=== PATIENT | female | born 1955 | race Caucasian/White ===

== ENCOUNTER 2018-06-27 06:30 | Inpatient (IN) ==
[2018-06-27] MEDS ORDERED: Chlorhexidine Gluconate 2% 1 Pack (2 Cloths) TOPICAL ONE (06:57)
[2018-06-27] MEDS ORDERED: Metoprolol Tartrate 25 MG Tablet PO ONE (06:57)
[2018-06-27] MEDS ORDERED: Sodium Chlor 0.9% Inj 500 ML IV.SIG SCH (07:00)
[2018-06-27] MEDS ORDERED: ceFAZolin 2 GM IV; once IV.SIG PRN (07:02)
[2018-06-27] MEDS ORDERED: Artificial Tears Opth Oint 3.5 GM Tube ONE (08:06)
--- NOTE | 2018-06-27 10:02 | P.OP ---
- Preoperative Diagnosis (1) Cancer of sigmoid colon - Postoperative Diagnosis (1) Cancer of sigmoid colon Date of procedure: 06/27/18 Procedure: Cystoscopy with bilateral ureteral catheter insertion Anesthesia: BARBARAA Surgeon: Hakeem Nicholson DO Estimated blood loss (mL): 0 Pathology: none sent Operation and Findings: 63-year-old female with history of colon cancer. Requests were made for bilateral ureteral catheter placement prior to sigmoid colectomy by Dr. Bradshaw. The patient was placed in the dorsolithotomy position, prepped and draped you sterile fashion, received preprocedure antibiotics and general endotracheal tube anesthesia was administered. A 22 Hungarian cystoscope was inserted in the bladder thompson cystoscopy did not reveal any abnormal. The left ureteral orifice was identified and a 5 Hungarian opening catheter was inserted into the left ureteral orifice without difficulty. This was repeated on the right side without difficulty. Bailey catheter was inserted and the catheters were attached to the Bailey. She tolerated the procedure well.
[2018-06-27] MEDS ORDERED: Sugammadex Inj 200 MG/2 ML Vial IV.PUSH ONE (11:59)
[2018-06-27] MEDS ORDERED: Naloxone Inj 0.4 MG/ML Vial IV.PUSH PRN (12:52)
[2018-06-27] MEDS ORDERED: Potassium Chlor 20 mEq Premix 20 MEQ/100 ML PIGGYBACK IV.SIG PRN ×2 (13:00→15:00)
[2018-06-27] MEDS ORDERED: *Meperidine Inj 25 MG/ML Vial PERIprocedural Use ONLY ONE (13:10)
[2018-06-27] MEDS ORDERED: fentaNYL Citrate Inj 100 MCG/2 ML Ampul ONE ×2 (13:20)
[2018-06-27] MEDS ORDERED: Morphine Inj 4 MG/ML Vial ONE (13:21)
[2018-06-27] MEDS ORDERED: *morphine SULFATE 4 MG/ML PERIprocedure ONLY ONE ×3 (13:26→13:58)
[2018-06-27 13:28] LABS: Baso % (Auto) 0.2 % (0.0-2.0); Hemoglobin 12.7 gm/dL (11.6-15.3); Lymph # (Auto) 0.6 th/mm3 (1.0-4.8); Lymph % (Auto) 6.6 % (9.0-44.0); Mean Corpuscular HGB Conc 34.2 % (32.0-36.0); Mean Corpuscular Hemoglobin 34.2 pg (27.0-34.0); Mean Platelet Volume 7.2 fL (7.0-11.0); Mono # (Auto) 0.2 th/mm3 (0.0-0.9); Mono % (Auto) 1.9 % (0.0-8.0); Neut # (Auto) 8.2 th/mm3 (1.8-7.7); Neut % (Auto) 91.3 % (16.0-70.0); Platelet Count 244 th/mm3 (150-450); Red Cell Distribution Width 12.9 % (11.6-17.2)
[2018-06-27] MEDS ORDERED: Morphine Inj 30 MG/30 ML PCA.VIAL PCA ONE (13:36)
[2018-06-27] MEDS: Dextrose 5%/NaCl 0.9% Inj 1,000 ML IV.CONT SCH ×2 (13:45→21:45)
[2018-06-27] MEDS: Morphine Inj 30 MG/30 ML PCA.VIAL PCA PRN (13:45)
[2018-06-27 13:48] LABS: Calcium 7.5 mg/dL (8.5-10.1); Carbon Dioxide 24.3 meq/L (21.0-32.0)
--- NOTE | 2018-06-27 14:01 | MP ---
cc: Germania Bradshaw MD, Joshua MD DATE OF OPERATION: 06/27/2018 PREOPERATIVE DIAGNOSIS: Sigmoid colon cancer. POSTOPERATIVE DIAGNOSIS: Sigmoid colon cancer. PROCEDURE PERFORMED: 1. Robotic sigmoid resection. 2. Robotic takedown of splenic flexure. SURGEON: Germania Bradshaw MD FIRE PREVENTION SPECIALIST: Sedrick. ANESTHESIA: General per ET tube. ESTIMATED BLOOD LOSS: 50 mL. INDICATIONS: The patient is a 63-year-old female who on recent screening colonoscopy was noted to have a sigmoid colon cancer. OPERATIVE COURSE: The patient was brought to the operating room, placed in supine position. After induction of general anesthesia, the patient was placed in Clive stirrups and all bony prominences were carefully padded. The skin of the anterior abdominal wall as well as the perineal area was then prepped and draped in the usual sterile fashion. Dr. Nicholson came in and performed cystoscopy with placement of bilateral ureteral catheters. Please see his operative note for details. A site was then chosen for the camera being located just to the right and above the umbilicus. A 10/12 trocar was placed at this location under direct vision using the laparoscope. CO2 insufflation was then began and a brief abdominal survey was then performed with nothing noted that would preclude the robotic approach. The camera was easily visualized in the proximal sigmoid and due to its location, I did plan at that point on taking down the splenic flexure. The remainder of the ports were then placed as follows: The #1 port, a 10/12 port, was placed just inside the right anterior superior iliac spine, a #5 assist port was placed just under the right costal margin equidistant from the camera and the #1 port. The #3 port was placed on the umbilical line in the left anterior axillary line and the #2 port was placed 3 fingerbreadths above the umbilical line in the left midclavicular line. The patient was positioned head down and slightly to the right. The small bowel was brought up and out of the pelvis and the robot was docked. The sigmoid colon was then retracted down into the left and the peritoneum on the right was scored. A window was then made posterior to the vessel. Dissection continued in this plane until the left ureter was clearly identified and swept away from the specimen. She did have quite prominent ovarian vessels, but we were able to stay away from them. Dissection continued up posterior to the vessels up to the level of their takeoff from the aorta. The inferior mesenteric vessels were then dissected free. The artery was then dissected free circumferentially and doubly clamped proximally and singly clamped distally with Hem-o-nirali clamps and divided. The inferior mesenteric vein was taken later in the procedure. Dissection then continued posteriorly and freeing the descending colon mesentery from the posterior peritoneum and laterally. The attention was then turned to the pelvis where the rectosigmoid was retracted anteriorly. Dissection was then continued in the posterior plane down to the level of the mid rectum and up and around the right side. The lateral peritoneal attachments of the descending colon were then dissected free using electrocautery easily meeting our previous dissection. Dissection then continued down on the left side meeting our dissection on the left. A sponge stick was then placed in the rectum and a site was chosen for division of the rectum just distal to the rectosigmoid junction. The mesentery at this level was divided using the Harmonic scalpel and an Villisca Endo stapler was placed across the bowel at this level. The 29 EEA stapler was then advanced through the anus and up to the rectal stump and came up nicely, but there was one small area where the serosa was split, so I did elect to dissect back an additional 2-3 cm. The mesentery was dissected back in addition 2-3 cm and a reload of the blue Endo stapler was placed across the bowel at this level. This was fired and removed and the small specimen was taken out and sent for pathology. The stapler was again advanced and came up nicely and lay without tension in a nice orientation. Small amount of fibrofatty tissue was cleared of the rectal stump and the stapler was removed. The descending colon was then retracted laterally and the lateral peritoneal attachments of the descending colon were dissected free meeting up with our previous posterior dissection. The omentum was grasped and pulled away from the distal transverse colon. Dissection was continued in this plane into the lesser sac was then entered. The dissection was then continued up and around the splenic flexure, thus freeing our splenic flexure from its lateral attachments posteriorly. The bowel was then gently retracted to the right and the posterior attachments were dissected free until we had free mobility of the bowel from just past the mid transverse colon all the way down into the mid rectum. We measured and I felt that pelvic bowel proximal tumor came down nicely to the rectal stump and we elected to proceed with the non-robotic portion of her procedure. A brief abdominal survey was taken. There was no sign of any significant bleeding. The robot was then undocked. A 10-12 cm transverse incision was made in the suprapubic area and using electrocautery, dissection was carried down to the fascia of the anterior abdominal wall, which was split the length of the skin incision. The medial fibers of the rectus abdominis muscle were then divided and the posterior fascia/peritoneum was divided as well. A wound protector was then placed and the proximal stapled end of the bowel was grasped and pulled up and out through the incision. A site was then chosen for proximal division of the bowel approximately 5 cm proximal to the cancer. The mesentery at this level was serially divided and ligated using 0 Vicryl ties, taking the inferior mesenteric vein with this. A pursestring stapling device was placed at the bowel at this level. Distal bowel was occluded with a Bere clamp. The bowel was then divided and the specimen was taken to the back table where it was later opened and a 7-8 cm cancer was confirmed. The anvil was then placed into the cut end of the bowel and the previously placed pursestring suture was then secured. This was then gently prolapsed back into the peritoneal cavity and the wound protector was removed. The posterior fascia of the anterior abdominal wall was closed in a running fashion using #1 PDS and the anterior fascia was closed in a running fashion using #1 PDS. The wound was copiously irrigated with warm normal saline and the skin was closed in an interrupted subcuticular fashion using 3-0 Vicryl. CO2 insufflation was then resumed and the laparoscope was placed into the peritoneal cavity. The 29 EEA stapler was advanced through the anus and up to the rectal stump without difficulty and the spike was advanced just anterior to the staple line. Using the anvil grasper, the anvil was grasped and mated into the spike being careful that the bowel was not twisted. The stapler was then closed, held for 30 seconds, fired and removed, thus creating an enteroenterotomy. Both anastomotic rings appeared to be healthy and complete. A small amount of warm normal saline was then placed in the pelvis and proximal pressure was held on the bowel. Air was insufflated into the rectum until gentle tension was noted on the anastomosis with no sign of any leakage noted. The air was desufflated and saline was suctioned out. The bowel lay in a nice orientation with no tension. All dissection beds were then examined, again with no sign of any bleeding noted. The 10/12 trocar sites were then closed using the Crossbow device and 0 Vicryl suture. The sutures were placed, but not secured until the CO2 insufflation was removed. CO2 insufflation was removed and the trocars were all removed. The Crossbow sutures were then secured. The wounds were copiously irrigated with warm normal saline and the skin at the trocar sites were closed in interrupted subcuticular fashion using 3-0 Vicryl. Steri-Strips and sterile dressing were applied. The right ureteral catheter was removed. All sponge, needle and instrument counts were correct and the patient was returned to the postanesthesia care unit in stable condition. MD JEISON Lafleur/derrick , 12:50 PM , 01:06 PM
[2018-06-27] MEDS ORDERED: *HYDROmorphone PF Inj 1 MG/ML Ampul PERIprocedural Use ONLY ONE ×2 (14:06→14:26)
[2018-06-27] MEDS: Dextrose 5%/NaCl 0.9% Inj 1,000 ML IV.SIG SCH ×4 (15:09→23:16)
[2018-06-27] MEDS: ceFAZolin 1 GM Premix Inj 1 GM/50 ML PIGGYBACK IV.SIG SCH (17:45)
[2018-06-27] MEDS: Famotidine PF Inj 20 MG/2 ML Vial IV.PUSH SCH (21:08)
[2018-06-27] MEDS: Heparin - SQ 10,000 UNITS/ML Vial SQ SCH (21:08)
[2018-06-28] MEDS: ceFAZolin 1 GM Premix Inj 1 GM/50 ML PIGGYBACK IV.SIG SCH ×2 (02:58→11:01)
[2018-06-28 04:53] LABS: Baso % (Auto) 0.2 % (0.0-2.0); Hematocrit 33.1 % (35.0-46.0); Hemoglobin 11.3 gm/dL (11.6-15.3); Lymph # (Auto) 0.8 th/mm3 (1.0-4.8); Lymph % (Auto) 10.7 % (9.0-44.0); Mean Corpuscular HGB Conc 34.2 % (32.0-36.0); Mean Corpuscular Volume 99.5 fL (80.0-100.0); Mean Platelet Volume 7.6 fL (7.0-11.0); Mono # (Auto) 0.4 th/mm3 (0.0-0.9); Mono % (Auto) 5.1 % (0.0-8.0); Neut # (Auto) 6.2 th/mm3 (1.8-7.7); Platelet Count 220 th/mm3 (150-450); Red Blood Count 3.33 mil/mm3 (4.00-5.30); White Blood Count 7.4 th/mm3 (4.0-11.0)
[2018-06-28 05:13] LABS: Calcium 7.5 mg/dL (8.5-10.1); Carbon Dioxide 27.7 meq/L (21.0-32.0); Potassium 4.4 meq/L (3.5-5.1)
[2018-06-28] MEDS: Dextrose 5%/NaCl 0.9% Inj 1,000 ML IV.CONT SCH ×2 (05:40→18:15)
[2018-06-28] MEDS: Dextrose 5%/NaCl 0.9% Inj 1,000 ML IV.SIG SCH ×3 (08:23→23:49)
--- NOTE | 2018-06-28 10:20 | P.PNCS ---
Subjective Colorectal Surgery Post Op Day #: 1 Interval history: afebrile, VSS UO good - stents dc'd c/o gas Objective Result Diagrams: 06/28/18 04:12 06/28/18 04:12 Objective Remarks: PE alert Abd - soft, flat, wound dry Assessment and Plan - Plan Imp: stable post-op OOB decr IVF tx to floor
[2018-06-28] MEDS: Heparin - SQ 10,000 UNITS/ML Vial SQ SCH ×2 (11:02→20:47)
[2018-06-28] MEDS: Famotidine PF Inj 20 MG/2 ML Vial IV.PUSH SCH ×2 (11:03→20:47)
[2018-06-28] MEDS: Morphine Inj 30 MG/30 ML PCA.VIAL PCA PRN (14:16)
[2018-06-29] MEDS: Dextrose 5%/NaCl 0.9% Inj 1,000 ML IV.CONT SCH ×2 (05:15→18:12)
[2018-06-29] MEDS: Morphine Inj 30 MG/30 ML PCA.VIAL PCA PRN (05:16)
[2018-06-29] MEDS: Dextrose 5%/NaCl 0.9% Inj 1,000 ML IV.SIG SCH ×2 (06:19→18:13)
[2018-06-29 07:57] LABS: Baso % (Auto) 0.5 % (0.0-2.0); Eos % (Auto) 0.3 % (0.0-4.0); Hematocrit 34.2 % (35.0-46.0); Hemoglobin 11.6 gm/dL (11.6-15.3); Lymph # (Auto) 0.8 th/mm3 (1.0-4.8); Lymph % (Auto) 13.2 % (9.0-44.0); Mean Corpuscular HGB Conc 33.9 % (32.0-36.0); Mean Corpuscular Volume 100.3 fL (80.0-100.0); Mean Platelet Volume 7.6 fL (7.0-11.0); Mono # (Auto) 0.4 th/mm3 (0.0-0.9); Mono % (Auto) 6.6 % (0.0-8.0); Neut # (Auto) 4.8 th/mm3 (1.8-7.7); Neut % (Auto) 79.4 % (16.0-70.0); Platelet Count 191 th/mm3 (150-450); Red Blood Count 3.41 mil/mm3 (4.00-5.30); Red Cell Distribution Width 12.9 % (11.6-17.2); White Blood Count 6.1 th/mm3 (4.0-11.0)
[2018-06-29 08:20] LABS: Calcium 7.8 mg/dL (8.5-10.1); Carbon Dioxide 28.1 meq/L (21.0-32.0); Potassium 3.8 meq/L (3.5-5.1)
[2018-06-29] MEDS: Heparin - SQ 10,000 UNITS/ML Vial SQ SCH ×2 (08:53→20:12)
[2018-06-29] MEDS: Famotidine PF Inj 20 MG/2 ML Vial IV.PUSH SCH ×2 (08:54→20:12)
--- NOTE | 2018-06-29 10:31 | P.PNCS ---
Subjective Colorectal Surgery Post Op Day #: 2 Interval history: afebrile, VSS UO good, less bloody Objective Result Diagrams: 06/29/18 07:40 06/29/18 07:40 Objective Remarks: PE alert - c/o gas pains Abd - soft, flat, wound dry Assessment and Plan - Plan Imp: OOB decr IVF adv diet dc [place]
[2018-06-30] MEDS: Dextrose 5%/NaCl 0.9% Inj 1,000 ML IV.SIG SCH ×2 (06:19)
[2018-06-30] MEDS: Dextrose 5%/NaCl 0.9% Inj 1,000 ML IV.CONT SCH ×2 (08:30→10:59)
[2018-06-30] MEDS: Heparin - SQ 10,000 UNITS/ML Vial SQ SCH (08:34)
[2018-06-30] MEDS: Famotidine PF Inj 20 MG/2 ML Vial IV.PUSH SCH (08:34)
--- NOTE | 2018-06-30 15:02 | P.PNCS ---
Subjective Colorectal Surgery Post Op Day #: 3 Interval history: s/p robotic sigmoid resection, takedown splenic flexure Objective Result Diagrams: 06/29/18 07:40 06/29/18 07:40 Objective Remarks: Abd - soft, flat, wound dry Assessment and Plan - Plan Doing well Home today Followup 3 weeks
--- NOTE | 2018-07-01 16:11 | MD ---
cc: Germania Bradshaw MD DATE OF DISCHARGE: 06/30/2018 DATE OF ADMISSION: 06/27/2018 DATE OF DISCHARGE: 06/30/2018 ADMISSION DIAGNOSIS: Sigmoid colon cancer. DISCHARGE DIAGNOSIS: Sigmoid colon cancer. PROCEDURES: 1. Cystoscopy, placement of bilateral ureteral catheters. 2. Robotic sigmoid resection. 3. Robotic takedown of the splenic flexure. HOSPITAL COURSE: The patient is a 63-year-old female who was recently noted to have a sigmoid colon cancer. She was admitted to the hospital on 06/27/2018 after an outpatient bowel prep. She was taken to the operating room. She underwent the above-named procedures. Postoperatively, she did well with rapid return of bowel and bladder function. She was discharged to home on postoperative day #3 with instructions to follow up with myself in the office. Final pathology was not available at the time of discharge. MD JEISON Lafleur/sb , 01:37 PM , 01:41 PM
== END 2018-06-30 18:18 | disposition home or self-care (01) ==
LOC: HSDI 06:30 → HCPC 15:05 → N07 06-28 18:56
PROVIDERS: ADMIT Colon & Rectal Surgery; ATTEND Colon & Rectal Surgery